=== PATIENT | female | born 1990 | race American Indian/Alaskan Native ===

== ENCOUNTER 2019-03-10 10:06 | Emergency (ER) | payer OTHER ==
[2019-03-10] MEDS ORDERED: IBUPROFEN PO ONE ×2 (11:14→11:17)
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
[2019-03-10 13:44] LABS: HCG Qualitative,Urine Negative (Negative)
--- NOTE | 2019-03-10 14:34 | XRay Report ---
ROUTINE CHEST, TWO VIEWS: HISTORY: chest pain. The trachea, heart, mediastinal contour, lung cornejo and bony thorax are unremarkable. IMPRESSION: Unremarkable chest x-ray.
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
[2019-03-10 15:50] VITALS: BP 118/68
== END 2019-03-10 15:49 | disposition home or self-care (01) ==
LOC: ED 10:06
DX: R51 Headache (principal); M54.6 Pain in thoracic spine; R07.89 Other chest pain; F17.200 Nicotine dependence, unspecified, uncomplicated; V89.2XXA Person injured in unspecified motor-vehicle accident, traffic, initial encounter; Y93.89 Activity, other specified; Y92.488 Other paved roadways as the place of occurrence of the external cause; Y99.8 Other external cause status
CPT/HCPCS: 70450; 71046; 72070; 72125; 81025; 99284